=== PATIENT | male | born 1980 | race Caucasian/White ===

== ENCOUNTER 2017-12-10 12:49 | Day surgery (SDC) | payer BC ==
[~2017-12-10] VITALS: Ht 185.4 cm; Wt 104.3 kg
[~2017-12-10 12:49] MED LIST: ESCITALOPRAM OX10 MG PO; KHEDEZLA50 MG PO; MEDROL DOSEPAK4 MG PO; NEXIUM40 MG PO; NOHOMEMEDS; PERCOCET 5/31 TABLET PO; PRIMIDONE50 MG PO; TYLOX1 CAPSULE PO; WELCHOL625 MG PO; ZOFRAN4 MG PO
[2017-12-10 13:33] VITALS: BP 130/83
[2017-12-10 18:23] VITALS: BP 102/63
[2017-12-10 19:00] VITALS: BP 114/56
== END 2017-12-10 19:10 | disposition home or self-care (01) ==
LOC: SDC 12:49
PROC: 0JB00ZZ Excision of Scalp Subcutaneous Tissue and Fascia, Open Approach (ICD-10-PCS; principal; 2017-12-10)
DX: D17.0 Benign lipomatous neoplasm of skin and subcutaneous tissue of head, face and neck (principal); K21.9 Gastro-esophageal reflux disease without esophagitis; F41.8 Other specified anxiety disorders; Z88.0 Allergy status to penicillin; Z87.891 Personal history of nicotine dependence
CPT/HCPCS: 88304; J0131; J0690; J1100; J1170; J1885; J2250; J2405; J2765; S0020